=== PATIENT | male | born 1960 | race Caucasian/White ===

== ENCOUNTER 2016-12-19 13:00 | Emergency (ER) | payer MEDICAID ==
--- NOTE | 2016-12-19 13:04 | ED Physician Chart ---
Chief Complaint/HPI - Patient Information Date Seen:: 12/19/16 Time Seen:: 13:05 Chief Complaint:: R lower leg wound with redness for 2 days. History of Present Illness:: Pt has noticed redness developed around his anterior R lower leg wound for 2 days. Pt accidentally impacted the corner of a wall 6 days ago with his R lower leg and sustained abrasion and small wound at anterior aspect of R lower leg. No fever. Taking po well without N/V/D. Pt remains ambulatory without difficulty. Last tetanus immunization is about 4 years ago. Allergies:: NKA Vitals:: see Nurse Note. Historian:: Patient Family MD/PCP:: Dr. Foreman LMP:: N/A Review:: Nurse's Note Reviewed Review of Systems - Review of Systems Skin: Bruising, Other (R anterior lower leg wound with peripheral erythema and mild swelling.) Head: No headache, No light-headedness Eyes: No loss of vision, No pain, No diplopia ENT: No earache, No nasal drainage, No sore throat, No tinnitus Neck: No neck pain, No swelling, No thyromegaly, No stiffness, No mass noted Cardio Vascular: No chest pain, No palpitations, No PND, No orthopnea, No edema Pulmonary: SOB GI: No nausea, No vomiting, No diarrhea, No pain, No melena, No hematochezia, No constipation, No hematemesis G/U: No dysuria, No frequency, No hematuria Musculoskeletal: No bone or joint pain, No back pain, No muscle pain Endocrine: No polyuria, No polydipsia Psychiatric: No prior psych history Hematopoietic: No bruising, No lymphadenopathy Allergic/Immuno: No urticaria, No angioedema Neurological: No syncope, No focal symptoms, No weakness, No paresthesia, No headache, No seizure, No dizziness, No confusion, No vertigo Past Medical History - Past Medical History Past Medical History: Asthma/COPD Family History: None Social History: Smoker (3 cigarets daily. Pt has been informed about health risks associated with chronic tobacco use and has been advised to quit. Pt has been encouraged to enroll in a smoking cessation program. Pt acknowledges understanding.), No Alcohol, No Drug Use, , Other (lives with significant other.) Employment:: unemployed. Surgical History: None Psychiatricy History: None Medication: Reviewed Physical Exam - Physical Examination General/Constitutional: Awake, Well-developed, well-nourished, Alert, No distress, GCS 15, Non-toxic appearing, Ambulatory Other Gen/Cons comments:: Breathes comfortably, speaks clearly, and ambulates without assistance without difficulty. Head: Atraumatic Eyes: Lids, conjuctiva normal, PERRL, EOMI Skin: No ecchymosis, Well hydrated, No lymphadenopathy Other Skin comments:: R lower leg: There is an approx. 1 cm wound at mid anterior aspect with dry scab in place. Nontender. No exudate. There is mild peripheral erythema adjacent to the wound without any significant swelling. No crepitus or unusual warmth. Good ROM of all joints. No detectable motor/sensory/vascular deficit. Good distal pulse. ED Septic Shock - . Is Septic Shock (SBP<90, OR Lactate>4 mmol\L) present?: No Reassessment (Disposition) - Reassessment Reassessment:: 1340 Pt remains stable. Discussed with pt at length. Pt requests to go home now and does not want any further testing, observation, or treatment at hospital. Aftercare instructions given. Reassessment Condition:: Improved - Diagnosis Diagnosis:: Recent superficial wound/abrasion in R lower leg with early cellulitis, stable. - Aftercare/Follow up Instructions Aftercare/Follow-Up Instructions:: Refer to Discharge Instructions Notes:: May take Motrin 200 mg tab 4 tabs po q8h prn pain. Wound care instructions given. F/U with PCP Dr. Foreman in one day for recheck. Return to ER immediately if condition worsens or if any further questions/problems. Medication Prescribed:: Bactrim DS one tab po q12h for 10 days. D-20 R-0 - Patient Disposition Discharge/Transfer:: Home Time:: 13:45 Condition at Disposition:: Stable, Improved
== END 2016-12-19 13:45 | disposition home or self-care (01) ==
LOC: ER 13:00
DX: L03.115 Cellulitis of right lower limb (principal); J44.9 Chronic obstructive pulmonary disease, unspecified; J45.909 Unspecified asthma, uncomplicated; F17.210 Nicotine dependence, cigarettes, uncomplicated
CPT/HCPCS: Z7502